=== PATIENT | female | born 1975 | race Caucasian/White ===

== ENCOUNTER 2021-12-10 21:12 | Emergency (ER) | payer OTHER ==
[~2021-12-10] VITALS: Ht 154.9 cm; Wt 89.1 kg
[2021-12-10 21:22] VITALS: TEMP 97.4
[2021-12-10 22:14] LABS: BASO # 0.1 K/mm3 (0.0-0.2); BASO % 0.7 % (0.0-2.0); EOS # 0.5 K/mm3 (0.0-0.7); EOS % 4.8 % (0.0-4.0); GRAN # 6.5 K/mm3 (1.4-6.5); GRAN % 60.1 % (42.2-75.2); HEMATOCRIT 41.8 % (37.0-47.0); HEMOGLOBIN 14.1 g/dl (12.5-16.0); LYMPH # 2.9 K/mm3 (1.2-3.4); LYMPH % 26.9 % (20.0-51.0); MEAN CELL VOLUME 86 fl (80.0-100.0); MEAN CORPUSCULAR HEMOGLOBIN 29 pg (27-31); MEAN CORPUSCULAR HGB CONC 34 g/dl (33.0-37.0); MEAN PLATELET VOLUME 9.9 fl (7.4-10.4); MONO # 0.8 K/mm3 (0.1-0.6); MONO % 7.2 % (1.7-9.3); PLATELET COUNT 337 K/mm3 (130-400); RED BLOOD COUNT 4.87 M/mm3 (4.10-5.30); REDCELL DISTRIBUTION WIDTH-CV 13.1 % (11.5-14.5)
[2021-12-10 22:33] LABS: ALANINE AMINOTRANSFERASE 24 U/L (0-55); ALBUMIN 4.1 gm/dL (3.5-5.0); ALKALINE PHOSPHATASE 80 U/L (40-150); ANION GAP 11 mmol/L (7-16); AST,SGOT 16 U/L (5-34); BILIRUBIN,TOTAL 0.4 mg/dL (0.2-1.2); BLOOD UREA NITROGEN 12 mg/dL (7-19); CALCIUM 9.3 mg/dL (8.4-10.2); CARBON DIOXIDE 27 mmol/L (22-29); CHLORIDE 100 mmol/L (98-107); CREATININE, serum 0.66 mg/dL (0.57-1.11); GLUCOSE 152 mg/dL (70-99); POTASSIUM 3.8 mmol/L (3.5-4.5); SODIUM 138 mmol/L (136-145); TOTAL PROTEIN 7.6 gm/dL (6.2-8.1)
[2021-12-10 22:34] LABS: ACETAMINOPHEN < 1.0 ug/mL (10-30); ALCOHOL(ethanol),MEDICAL < 10 mg/dL (0-10); SALICYLATE < 5.0 mg/dL (15.0-30.0)
[2021-12-11 00:48] LABS: COLLECTION METHOD CLEAN CATCH
[2021-12-11 00:57] LABS: MUCOUS Present (NOT PRESENT); URINE BACTERIA None Seen /hpf (NONE SEEN)
[2021-12-11 01:00] LABS: PH 5.5 (5.0-8.5); URINE APPEARANCE Hazy (CLEAR/HAZY); URINE BLOOD Negative (NEGATIVE); URINE COLOR Yellow (YELLOW); URINE GLUCOSE Negative (NEGATIVE); URINE KETONE Negative (NEGATIVE); URINE NITRATE Negative (NEGATIVE); URINE PROTEIN(semi-quant) Negative (NEGATIVE); URINE UROBILINOGEN 0.2 E.U/dL (0.2-1.0)
[2021-12-11 01:21] LABS: TRICYCLIC ANTIDEPRESS URINE NEGATIVE
[2021-12-11] MEDS ORDERED: VYVANSE70 MG PO (01:26)
[2021-12-11] MEDS ORDERED: BUSPAR DIVIDOSE15 MG PO (01:26)
[2021-12-11] MEDS ORDERED: KLONOPIN 0.5MG0.5 MG PO (01:26)
[2021-12-11] MEDS ORDERED: MOBIC 7.5MG7.5 MG PO (01:26)
[2021-12-11] MEDS ORDERED: AMBIEN 10MG10 MG PO (01:27)
[2021-12-11] MEDS ORDERED: GLUCOPHAGE XR500 M1 PO (01:27)
[2021-12-11] MEDS ORDERED: DESYREL 100MG100 MG PO (01:27)
[2021-12-11] MEDS ORDERED: SEROQUEL50 MG PO (01:27)
[2021-12-11] MEDS ORDERED: ULTRAM 50MG TAB50 MG PO (01:27)
[2021-12-11] MEDS ORDERED: CELEXA40 MG PO (01:27)
[2021-12-11 08:15] VITALS: BP 164/87; PULSE 87
== END 2021-12-11 08:30 ==
LOC: COL.ER 21:12
PROVIDERS: Nurse Practitioner Primary Care
DX: R45.851 Suicidal ideations (principal); Z20.822 Contact with and (suspected) exposure to COVID-19